=== PATIENT | female | born 1950 | race Two or more races ===

== ENCOUNTER 2023-06-19 09:48 | Outpatient (CLI) | payer OTHER ==
[2023-06-19] MEDS ORDERED: TOPROL XL50 M1 PO (13:25)
[2023-06-19] MEDS ORDERED: NEURONTIN300 MG PO (13:26)
[2023-06-19] MEDS ORDERED: SYNTHROID100 MCG PO (13:27)
[2023-06-19] MEDS ORDERED: TOPAMAX25 MG PO (13:29)
[2023-06-19] MEDS ORDERED: ADULT ASPIRIN81 MG PO (13:29)
[2023-06-19] MEDS ORDERED: CLONAZEPAM0.5 MG PO (13:31)
[2023-06-19] MEDS ORDERED: PAXIL40 MG PO (13:32)
[2023-06-19] MEDS ORDERED: PROAIR RESPICL90 MCG IH (13:33)
[2023-06-19] MEDS ORDERED: ALENDRONATE SOD35 MG PO (13:34)
[2023-06-19] MEDS ORDERED: EC-NAPROSYN375 MG PO (13:35)
[2023-06-19] MEDS ORDERED: CYCLOBENZAPRINE10 MG PO (13:36)
[2023-06-19] MEDS ORDERED: NAPROSYN125 MG/5 M PO (13:38)
== END 2023-06-19 09:59 | disposition home or self-care (01) ==
LOC: RX STUDY 09:48
PROVIDERS: ATTEND Family Medicine
DX: R13.14 Dysphagia, pharyngoesophageal phase (principal); R13.12 Dysphagia, oropharyngeal phase

== ENCOUNTER 2023-06-19 12:04 | Emergency (ER) | payer OTHER ==
[~2023-06-19] VITALS: Ht 162.6 cm; Wt 73.9 kg
[2023-06-19] MEDS ORDERED: TOPROL XL50 M1 PO (13:25)
[2023-06-19] MEDS ORDERED: NEURONTIN300 MG PO (13:26)
[2023-06-19] MEDS ORDERED: SYNTHROID100 MCG PO (13:27)
[2023-06-19] MEDS ORDERED: TOPAMAX25 MG PO (13:29)
[2023-06-19] MEDS ORDERED: ADULT ASPIRIN81 MG PO (13:29)
[2023-06-19] MEDS ORDERED: CLONAZEPAM0.5 MG PO (13:31)
[2023-06-19] MEDS ORDERED: PAXIL40 MG PO (13:32)
[2023-06-19] MEDS ORDERED: PROAIR RESPICL90 MCG IH (13:33)
[2023-06-19] MEDS ORDERED: ALENDRONATE SOD35 MG PO (13:34)
[2023-06-19] MEDS ORDERED: EC-NAPROSYN375 MG PO (13:35)
[2023-06-19] MEDS ORDERED: CYCLOBENZAPRINE10 MG PO (13:36)
[2023-06-19] MEDS ORDERED: NAPROSYN125 MG/5 M PO (13:38)
== END 2023-06-19 16:21 | disposition home or self-care (01) ==
LOC: ER 12:04
DX: T16.1XXA Foreign body in right ear, initial encounter (principal); W44.8XXA Other foreign body entering into or through a natural orifice, initial encounter; Y93.89 Activity, other specified; Y92.89 Other specified places as the place of occurrence of the external cause; Y99.9 Unspecified external cause status